=== PATIENT | female | born 1960 | race Asian ===

== ENCOUNTER 2019-01-23 09:31 | Day surgery (SDC) | payer OTHER ==
[2019-01-23] VITALS (12 sets, daily range): BP systolic 93–158; BP diastolic 59–103; PULSE 84–95; RESP 14–24; Ht 160 cm; Wt 79.0 kg
[~2019-01-23] VITALS: Ht 160 cm; Wt 79.0 kg
[~2019-01-23 09:31] MED LIST: AMLO-147 PO; LOSA25TA12 PO; METF850T13 PO; SIMV40TA2 PO
[2019-01-23] MEDS ORDERED: CEFAZOLIN 1 GM/50 ML (PMX) 50 ML IVPB ONE (10:00)
[2019-01-23] MEDS ORDERED: SOD CHLORIDE 0.9% 1,000 ML IV SCH (10:00)
[2019-01-23] MEDS ORDERED: BUPIVACAINE 0.5%/EPI (SDV) 30 ML INJ ONE (10:36)
[2019-01-23] MEDS ORDERED: ROCURONIUM 50 MG INJ ONE (11:00)
[2019-01-23] MEDS ORDERED: CLINDAMYCIN 900 MG (PMX) 900 MG/50 ML BAG IVPB ONE (11:00)
[2019-01-23] MEDS ORDERED: PROPOFOL 20 ML ONE (11:00)
[2019-01-23] MEDS ORDERED: FENTAnyl 50 MCG/ML VIAL ONE (11:00)
[2019-01-23] MEDS ORDERED: MIDAZOLAM 1 MG/ML 2 ML INJ ONE (11:00)
[2019-01-23] MEDS ORDERED: NEOSTIGMINE 3 MG/3 ML SYRINGE ONE (11:00)
[2019-01-23] MEDS ORDERED: GLYCOPYRROLATE 0.4 MG INJ ONE (11:00)
[2019-01-23] MEDS ORDERED: LIDOCAINE 100 MG SYRINGE ONE (11:00)
[2019-01-23] MEDS ORDERED: ONDANSETRON 4 MG INJ ONE (11:03)
[2019-01-23] MEDS ORDERED: PHENYLephrine 10 MG INJ ONE (11:24)
[2019-01-23] MEDS ORDERED: CLINDAMYCIN 600 MG/D5W (PMX) 50 ML IVPB ONE (11:24)
[2019-01-23] MEDS ORDERED: LABETALOL HCL 20MG INJ ONE (11:56)
[2019-01-23] MEDS ORDERED: EPHEDrine 25 MG/5 ML SYG IV PRN (12:00)
[2019-01-23] MEDS ORDERED: DIPHENHYDRAMINE 50 MG INJ IV PRN (12:00)
[2019-01-23] MEDS ORDERED: hydrALAzine 20 MG INJ IV PRN (12:00)
[2019-01-23] MEDS ORDERED: METOCLOPRAMIDE 10 MG INJ IV PRN (12:00)
[2019-01-23] MEDS ORDERED: LABETALOL HCL 20MG INJ IV PRN (12:00)
[2019-01-23] MEDS ORDERED: MEPERIDINE 25 MG INJ IV PRN (12:00)
[2019-01-23] MEDS ORDERED: OXYCODONE/ACETAMINOPHEN (5/325) TAB PO PRN (12:00)
[2019-01-23] MEDS ORDERED: ONDANSETRON 4 MG INJ IV PRN (12:00)
[2019-01-23] MEDS: HYDROmorphONE 1 MG/5 ML IV SYRINGE IV PRN ×2 (13:03→13:11)
== END 2019-01-23 15:00 | disposition home or self-care (01) ==
LOC: SDS 09:31
PROVIDERS: ATTEND Surgery Surgical Oncology
DX: R22.1 Localized swelling, mass and lump, neck (principal)
CPT/HCPCS: 21552; 82962; 87102; 87116; J0690; J1170; J2001; J2250; J2370; J2405; J3010; Z7610; 88307; 88331; J2710